=== PATIENT | female | born 1965 | race Asian ===

== ENCOUNTER 2020-03-20 14:15 | Outpatient (CLI) | payer OTHER ==
--- NOTE | 2020-03-23 16:19 | Mammography Report ---
BILATERAL DIGITAL SCREENING MAMMOGRAM 3D/2D: 03/20/2020 CLINICAL: Routine screening. Comparison is made to exams dated: 04/22/2016 mammogram, 11/28/2014 mammogram, and 11/30/2009 mammogra m - [facility]. The tissue of both breasts is heterogeneously dense. This may lowe r the sensitivity of mammography. There is a benign mass in the left breast. No significant masses, calcifications, or other findings are seen in either breast. There has been no significant interval change. IMPRESSION: BENIGN There is no mammographic evidence of malignancy. A 1 year screening mammogram is recommended. This exam was interpreted at Station ID: [id number]. NOTE: For mammograms, a report in lay terms will be sent to the patient. Approximately 15% of breast malignancies will not be visualized mammographically. In the management of a palpable breast mass, a negative mammogram must not discourage biopsy of a clinically suspicious lesion. Electronically Signed By: Freeman flores/radha:03/20/2020 19:00:27 ACR BI-RADS Category 2: Benign Finding(s) 3342F PARENCHYMAL PATTERN: (D) - The breast(s) demonstrate(s) heterogeneously dense fibroglandular parfranki fry. BI-RADS CATEGORY: (2) - 2 RECOMMENDATION: (ANNUAL) - Recommend routine annual screening mammography. [id number] 1 year screening LATERALITY: (B)
== END 2020-03-20 14:16 | disposition home or self-care (01) ==
LOC: DI.N 14:15
PROVIDERS: ATTEND Internal Medicine
DX: Z12.31 Encounter for screening mammogram for malignant neoplasm of breast (principal)
CPT/HCPCS: 77063; 77067

== ENCOUNTER 2020-03-28 11:09 | Outpatient (CLI) | payer OTHER ==
--- NOTE | 2020-03-28 14:18 | Ultrasound Report ---
PROCEDURE: Head or Neck Soft Tissue INDICATIONS: MULTINODULAR GOITER TECHNIQUE: Real time scanning was performed of the neck region of interest, with image documentation . COMPARISON: 11/28/2014 FINDINGS: The thyroid has been removed. No residual thyroid tissue is seen. No neck masses are ident ified. No enlarged lymph nodes. IMPRESSION: Status post thyroidectomy, without residual or recurrent thyroid tissue seen. Reviewed by: Jay Wing MD on 03/28/2020 1:17 PM [facility] Approved by: Jay Wing MD on 03/28/2020 1:17 PM [facility] Station ID: [id number]
--- NOTE | 2020-03-28 14:21 | Ultrasound Report ---
PROCEDURE: Abdomen Limited INDICATIONS: RUQ PAIN TECHNIQUE: Real-time focused scanning was performed of the abdomen, with image documentation. COMPARISON: 10/16/2015 FINDINGS: The liver demonstrates normal size. The liver demonstrates a coarsened, heterogeneous appe arance. Within the left lobe of the liver superiorly and posteriorly, there is a 1.1 cm cyst seen. Wi thin the inferior medial left liver, there is a septated 1 cm cyst seen. On the right, laterally and superiorly, there is a 9 mm cyst seen. The liver overall demonstrates mildly increased echogenicity. No gallstones or significant sludge can be seen. The gallbladder wall does not appear thickened. Ther e is no specific pericholecystic fluid. The sonographic Gonzalez's sign is negative. No biliary ductal dilatation is seen. The common bile duct measures 5 mm. The visualized pancreas is unremarkable. The right kidney demonstrates normal length, without hydronephrosis. Right kidney demonstrates a mild ly lobulated contour. IMPRESSION: Increased liver echogenicity is seen. This is nonspecific, yet it is most commonly attributed to fatt y infiltration. Liver cysts are seen, without suspicious features. The gallbladder demonstrates a normal sonographic appearance. No biliary dilatation is seen. Reviewed by: Jay Wing MD on 03/28/2020 1:19 PM [facility] Approved by: Jay Wing MD on 03/28/2020 1:19 PM [facility] Station ID: [id number]
== END 2020-03-28 11:10 | disposition home or self-care (01) ==
LOC: DI 11:09
PROVIDERS: ATTEND Internal Medicine
DX: R93.2 Abnormal findings on diagnostic imaging of liver and biliary tract (principal); K76.89 Other specified diseases of liver; E89.0 Postprocedural hypothyroidism
CPT/HCPCS: 76536; 76705

== ENCOUNTER 2020-04-20 09:57 | Outpatient (CLI) | payer OTHER ==
--- NOTE | 2020-04-20 10:45 | XRAY Report ---
PROCEDURE: Chest 2 View X-Ray INDICATIONS: PRE OP/HGSIL TECHNIQUE: 2 view(s) of the chest. COMPARISON: None. FINDINGS: Surgical changes and devices: None. Lungs and pleura: No pleural effusions or pneumothorax. Lungs are clear. Mediastinum: Mediastinal contours are normal. Heart size is normal. Bones and chest wall: No suspicious bony abnormalities. Soft tissues appear unremarkable. IMPRESSION: Normal for age, no contraindication to operative intervention is seen. Reviewed by: Rafal Brasher MD on 04/20/2020 10:44 AM [facility] Approved by: Rafal Brasher MD on 04/20/2020 10:44 AM [facility] Station ID: [id number]
== END 2020-04-20 09:58 | disposition home or self-care (01) ==
LOC: DI 09:57
PROVIDERS: ATTEND Obstetrics & Gynecology
DX: R87.613 High grade squamous intraepithelial lesion on cytologic smear of cervix (HGSIL) (principal); I51.7 Cardiomegaly
CPT/HCPCS: 71046; 93005

== ENCOUNTER 2020-05-01 16:10 | Outpatient (CLI) | payer OTHER | END 2020-05-01 16:11 | disposition home or self-care (01) | LOC: COV 16:10 | PROVIDERS: ATTEND Obstetrics & Gynecology | DX: Z01.812 Encounter for preprocedural laboratory examination (principal); Z20.828 Contact with and (suspected) exposure to other viral communicable diseases; R87.613 High grade squamous intraepithelial lesion on cytologic smear of cervix (HGSIL) ==

== ENCOUNTER 2020-05-06 12:53 | Day surgery (SDC) | payer OTHER ==
[2020-05-06] MEDS ORDERED: ONDANSETRON 4 MG/2 ML VIAL IVP ONE (12:54)
[2020-05-06] MEDS ORDERED: hydrALAZINE INJ 20 MG/ML VIAL IVP ONE (12:54)
[2020-05-06] MEDS ORDERED: fentaNYL 100 MCG/2 ML VIAL IVP ONE (12:54)
[2020-05-06] MEDS ORDERED: PROPOFOL 200 MG/20 ML VIAL IVP ONE (12:54)
[2020-05-06] MEDS ORDERED: MIDAZOLAM 2 MG/2 ML VIAL IVP ONE (12:54)
[2020-05-06] MEDS ORDERED: LIDOCAINE-MPF 2% 5 ML VIAL IM ONE (12:54)
[2020-05-06] MEDS ORDERED: DEXAMETHASONE 4 MG/ML VIAL IVP ONE (12:54)
[2020-05-06] MEDS ORDERED: LACTATED RINGERS 1,000 ML IV ONE ×2 (13:23→17:13)
[2020-05-06] MEDS ORDERED: GABAPENTIN 400 MG CAPSULE ONE (13:28)
--- NOTE | 2020-05-06 14:48 | ANESTHESIA ---
Pre-Anesthesia VS, & Labs - Diagnosis HGSIL pap - Procedure LEEP Vital Signs: Temp Pulse Resp BP Pulse Ox 36.9 C 58 L 16 204/107 H 100 05/06/20 13:06 05/06/20 13:06 05/06/20 13:06 05/06/20 13:06 05/06/20 13:06 Height: 5 ft 3 in Weight (kg): 61.9 kg Body Mass Index: 24.1 BMI Classification: Healthy weight - NPO >8 hours - Is Patient ?: No Home Medications and Allergies Home Medications: Ambulatory Orders Levothyroxine [Synthroid] 100 mcg PO QDAC 05/04/20 Ibuprofen [Advil] 200 mg PO .PRN PRN 04/28/15 Levothyroxine [Synthroid] 100 mcg PO QDAC 05/04/20 Allergies/Adverse Reactions: Allergies Allergy/AdvReac Type Severity Reaction Status Date / Time codeine phosphate * AdvReac Intermediate Nausea/Vomi Verified 03/02/15 08:40 [From Tylenol-Codeine] tting Anes History & Medical History - Anesthetic History Anesthesia Complications: reports: No previous complications - Medical History Cardiovascular: reports: Hypertension Pulmonary: reports: None Gastrointestinal: reports: None Urinary: reports: None Musculoskeletal: reports: None Endocrine/Autoimmune: reports: HyPOthyroidism Skin: reports: None Smoking Status: Current some day smoker Psychosocial: reports: No issues indicated History of Cancer?: Yes (thyroid) - Surgical History Gynecologic: section Other Past Surgical History: thyroidectomy 2014 Exam General: Alert Dental: WNL Mouth Opening: Can't Open Mouth Neck Mobility: Normal Mallampati classification: II Thyromental Distance: greater than 6 cm Respiratory: Lungs clear Cardiovascular: Regular rate Mental/Cognitive Status: Alert/Oriented X3 Plan Anesthesia Type: MAC Consent for Procedure(s) Verified and Reviewed: Yes Code Status: Attempt Resuscitation ASA classification: 2-Mild systemic disease Is this case an emergency?: No
[2020-05-06] MEDS ORDERED: LIDOCAINE 1%-EPI 1:100000 20 ML MDV SUBQ ONE ×3 (16:04→16:51)
[2020-05-06] MEDS ORDERED: LIDOCAINE 1%-EPI 1:100000 20 ML MDV ONE (16:48)
--- NOTE | 2020-05-06 17:14 | OPERATIVE REPORT ---
Operative Report - General Procedure Date: 05/06/20 Planned Procedure: LEEP procedure Pre-Op Diagnosis: HGSIL, HTN Procedure Performed: LEEP Post Op Diagnosis: Same - Procedure Note Primary Surgeon: Frantz Shen Anesthesia Provider: Frantz Ruiz CRNA Anesthesia Technique: Epidural, Local Pathology: 1) Ectocervix, anterior 2) Ectocervix, posterior 3) ECC IV Fluids (mL): 1,200 Estimated Blood Loss (mL): 5 (less than 5 cc) Urine Output (mL): 0 (not measured) Indications: Patient is a 54 yo female with HGSIL on pap smear. She presented to clinic for colposcopy and was seen by Dr. Panchal. Her blood pressures were in severe range and procedure was discontinued. She has since been evaluated for elevated BPs. She was cleared for procedure under anesthesia in the event that she has excess bleeding due to the hypertension. She presents today for the LEEP procedure. Findings: Atrophic vaginal tissue. Cervix was small, atrophic, and stenotic and recessed deep within vaginal vault. Small amount of vaginal adhesions at the apex for the vagina. Complications: None - Other Other Information/Narrative: The patient was prepped and draped in the usual sterile fashion and placed in the dorsal lithotomy position. A grounding pad was placed on the patients right anterior thigh. A time out was performed, correctly identifying the patient and the LEEP procedure. At this time, a bivalved nonconductive speculum was placed in the vagina. Lugol's solution was painted along the entire cervix and vaginal wall. Areas of non-uptake were were limited to the anterior aspect of a very small cervix. Approximately 24 mL of 1% lidocaine with epinephrine was injected and 4:00 and 8:00 at portio of the cervix and circumferentially along the cervix. A 5 mm loop electrode was used to remove the anterior portion of the cervix. A second pass was used to excess a small amount of posterior tissue. The excised ectocervical biopsy was sent to pathology in 2 pieces. An endocervical curettage was performed, although limited by cervical stenosis. Specimen was sent to pathology. The LEEP bed was cauterized using the rollerball. A generous plug of Monsels solution was placed on the cervical bed. Hemostasis was noted. All instruments were removed from vagina at this point. The patient tolerated the procedure well and without complication. She was brought to the PACU in stable condition.
[2020-05-06 17:35] VITALS: BP 129/75
== END 2020-05-06 12:54 | disposition home or self-care (01) ==
LOC: SDS 12:53
PROVIDERS: ATTEND Obstetrics & Gynecology
PROC: 0UBC8ZX Excision of Cervix, Via Natural or Artificial Opening Endoscopic, Diagnostic (ICD-10-PCS; principal; 2020-05-06 14:15)
DX: R87.613 High grade squamous intraepithelial lesion on cytologic smear of cervix (HGSIL) (principal); I10 Essential (primary) hypertension; N95.2 Postmenopausal atrophic vaginitis; F17.210 Nicotine dependence, cigarettes, uncomplicated
CPT/HCPCS: 57461; A9270; J7120

== ENCOUNTER 2023-06-02 08:22 | Day surgery (SDC) | payer OTHER ==
[2023-06-02] MEDS ORDERED: PROPOFOL 200 MG/20 ML VIAL IVP ONE (08:29)
[2023-06-02] MEDS ORDERED: LACTATED RINGERS 1,000 ML IV ONE ×3 (08:33→09:54)
--- NOTE | 2023-06-02 08:53 | ANESTHESIA ---
Pre-Anesthesia VS, & Labs - Diagnosis SCREENING - Procedure COLONOSCOPY Vital Signs: Temp Pulse Resp BP Pulse Ox O2 Flow Rate 36.4 C L 54 L 17 150/87 H 100 06/02/23 08:44 06/02/23 08:44 06/02/23 08:44 06/02/23 08:44 06/02/23 08:44 Height: 5 ft 3 in Weight (kg): 65.8 kg Body Mass Index: 25.7 BMI Classification: Overweight - NPO Last Fluid Intake: 629 PREP - Is Patient ?: No Home Medications and Allergies Home Medications: Ambulatory Orders Atenolol [Tenormin] 50 mg PO DAILY 05/29/23 lisinopriL [Zestril] 5 mg PO DAILY 05/29/23 Levothyroxine [Synthroid] 150 mcg PO QDAC 05/04/20 Atenolol [Tenormin] 50 mg PO DAILY 05/29/23 lisinopriL [Zestril] 5 mg PO DAILY 05/29/23 Allergies/Adverse Reactions: Allergies Allergy/AdvReac Type Severity Reaction Status Date / Time codeine phosphate * AdvReac Intermediate Nausea/Vomi Verified 03/02/15 08:40 [From Tylenol-Codeine] tting Anes History & Medical History - Anesthetic History Anesthesia Complications: reports: No previous complications Family history of Anesthesia Complications: Denies Family history of Malignant Hyperthermia: Denies - Medical History Cardiovascular: reports: Hypertension Pulmonary: reports: None Gastrointestinal: reports: None Urinary: reports: None Musculoskeletal: reports: None Endocrine/Autoimmune: reports: HyPOthyroidism Skin: reports: None Smoking Status: Current some day smoker - Surgical History Gynecologic: reports: section Results - EKG Results EKG Comparison: Reviewed EKG Exam General: Alert, Oriented x3, Cooperative, No acute distress Dental: WNL Mouth Openin Fingerbreadth Neck Mobility: Normal Mallampati classification: III Plan Anesthesia Type: Total IV Consent for Procedure(s) Verified and Reviewed: Yes Code Status: Attempt Resuscitation ASA classification: 3-Severe systemic disease Is this case an emergency?: No
[2023-06-02 08:55] VITALS: O2SAT 100
--- NOTE | 2023-06-02 09:16 | HISTORY & PHYSICAL EXAMINATION ---
Chief Complaint - Chief Complaint Chief Complaint: here for colonoscopy History of Present Illness - History Obtained From Records Reviewed: yes History obtained from: pt Exam Limitations: none - History of Present Illness HPI Comment/Other: no prior colon cancer screening. no gi symptoms. 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/Allgy - Home Medications Home Medications: Ambulatory Orders Medication Instructions Recorded Confirmed Levothyroxine [Synthroid] 150 mcg PO QDAC 05/04/20 06/01/23 Atenolol [Tenormin] 50 mg PO DAILY 05/29/23 06/01/23 lisinopriL [Zestril] 5 mg PO DAILY 05/29/23 06/01/23 - Allergies Allergies/Adverse Reactions: Allergies Allergy/AdvReac Type Severity Reaction Status Date / Time codeine phosphate * AdvReac Intermediate Nausea/Vomi Verified 03/02/15 08:40 [From Tylenol-Codeine] tting Review of Systems - Constitutional Constitutional: reports: Fatigue (10 pt ros as above otherwise unremarkable) Exam - Vital Signs Reviewed Vital Signs: Yes Vital Signs: Vital Signs x48h Temp Pulse Resp BP Pulse Ox 06/02/23 08:44 36.4 C L 54 L 17 150/87 H 100 - Physical Exam General Appearance: positive: No acute distress, Alert Eyes Bilateral: positive: PERRL, EOMI ENT: positive: No signs of dehydration Neck: positive: No JVD, Trachea midline Respiratory: positive: Breath sounds nml Cardiovascular: positive: Regular rate & rhythm Abdomen: positive: Non-tender, No distention Neurologic/Psychiatric: positive: Oriented x3 Conclusion/Plan - Problem List (1) Colon cancer screening Conclusion/Plan: plan colonoscopy. parq held and consent obtained
[2023-06-02 10:40] VITALS: BP 147/86
--- NOTE | 2023-06-02 12:19 | ANESTHESIA POST OP EVALUATION ---
Anesthesia Post Eval - Post Anesthesia Eval Vitals: Last Vital Signs Temp 36.2 C L 06/02/23 10:10 Pulse 61 06/02/23 10:10 Resp 16 06/02/23 10:10 BP 147/86 H 06/02/23 10:10 Pulse Ox 100 06/02/23 10:10 O2 Flow Rate CV Function Including HR & BP: Stable Pain Control: Satisfactory Nausea & Vomiting: Negative Mental Status: Baseline Respiratory Status: Airway Patent Hydration Status: Satisfactory Anesthesia Complications: None
== END 2023-06-02 08:23 | disposition home or self-care (01) ==
LOC: SDS 08:22
PROVIDERS: ATTEND Surgery
PROC: 0DBN8ZZ Excision of Sigmoid Colon, Via Natural or Artificial Opening Endoscopic (ICD-10-PCS; principal; 2023-06-02 09:30)
DX: Z12.11 Encounter for screening for malignant neoplasm of colon (principal); K63.5 Polyp of colon; B65.9 Schistosomiasis, unspecified; I10 Essential (primary) hypertension; F17.200 Nicotine dependence, unspecified, uncomplicated
CPT/HCPCS: 45380; J7120

== ENCOUNTER 2023-06-16 08:59 | Outpatient (CLI) | payer OTHER ==
--- NOTE | 2023-06-19 11:46 | Mammography Report ---
BILATERAL DIGITAL SCREENING MAMMOGRAM 3D/2D: 06/16/2023 CLINICAL: Routine screening. Comparison is made to exams dated: 03/20/2020 mammogram, 04/22/2016 mammogram, and 11/28/2014 mammogra m - [facility]. Both breasts are heterogeneously dense, which may obscure small masses (category c / 51-75% glandular tissue). There is a benign mass in the left breast. No significant masses, calcifications, or other findings are seen in either breast. There has been no significant interval change. IMPRESSION: BENIGN There is no mammographic evidence of malignancy. A 1 year screening mammogram is recommended. Based on the Tyrer Cuzick model (a risk assessment model) the patients lifetime risk is 8.8% and her 10 year risk is 3.0%. According to the ACR, ACS, and NCCN guidelines, an annual breast MRI exam skyler g with mammogram is recommended if the patients lifetime risk is 20% or greater. This exam was interpreted at Station ID: [id number]. NOTE: For mammograms, a report in lay terms will be sent to the patient. Approximately 15% of breast malignancies will not be visualized mammographically. In the management of a palpable breast mass, a negative mammogram must not discourage biopsy of a clinically suspicious lesion. Electronically Signed By: Hoang apodaca/radha:06/16/2023 10:00:49 letter sent: No_Letter ACR BI-RADS Category 2: Benign Finding(s) 3342F PARENCHYMAL PATTERN: (D) - The breast(s) demonstrate(s) heterogeneously dense fibroglandular gloria fry. BI-RADS CATEGORY: (2) - 2 Mammogram [id number] 1 year screening LATERALITY: (B)
== END 2023-06-16 09:00 | disposition home or self-care (01) ==
LOC: DI 08:59
PROVIDERS: ATTEND Internal Medicine
DX: Z12.31 Encounter for screening mammogram for malignant neoplasm of breast (principal); R92.333 Mammographic heterogeneous density, bilateral breasts

== ENCOUNTER 2023-06-16 09:01 | Outpatient (CLI) | payer OTHER ==
--- NOTE | 2023-06-16 11:49 | Ultrasound Report ---
PROCEDURE: Abdomen Limited INDICATIONS: ELEVATED LIVER ENZYMES TECHNIQUE: Real-time focused scanning was performed of the abdomen, with image documentation. COMPARISONS: None. FINDINGS: Liver: Increased liver echogenicity. Coarsened liver echogenicity. Left hepatic lobe cystic lesion m easuring 1.3 cm. This cyst has scalloped margins. Gallbladder: Unremarkable. Biliary ducts: Intrahepatic bile ducts are non-dilated. Extrahepatic bile duct caliber measures 0 m m. Normal is 6-7 mm or less in diameter, or 10 mm or less post-cholecystectomy. Pancreas: Visualized portions of the pancreas are sonographically normal. Right kidney: Normal in size and echotexture. Right kidney measures 9.2 cm long. No hydronephrosis o r nephrolithiasis. No solid masses. No complex renal cystic lesions which require follow-up. IVC: Intrahepatic inferior vena cava is patent. Miscellaneous: No free abdominal fluid. IMPRESSION: Increased liver echogenicity, with a coarsened echotexture. Findings likely indicate chronic parenchy mal disease such as hepatic steatosis. 1.3 cm left hepatic lobe cyst with scalloped margins. Consider MRI to evaluate for nodularity (liver mass protocol). Reviewed by: Dontrell Dietz MD on 06/16/2023 11:48 AM PST Approved by: Dontrell Dietz MD on 06/16/2023 11:48 AM PST Station ID: [id number]
== END 2023-06-16 09:02 | disposition home or self-care (01) ==
LOC: DI 09:01
PROVIDERS: ATTEND Internal Medicine
DX: K76.89 Other specified diseases of liver (principal)